=== PATIENT | male | born 1975 | race Two or more races ===

== ENCOUNTER 2021-12-27 11:31 | Emergency (ER) | payer OTHER ==
[~2021-12-27] VITALS: Ht 172.7 cm; Wt 73.0 kg
[2021-12-27] MEDS ORDERED: HYDROCODONE/ACETAMINOPHEN 5/325MG TABLET PO ONE (12:00)
[2021-12-27] MEDS ORDERED: ONDANSETRON 4MG ODT PO ONE (12:00)
[2021-12-27 13:34] VITALS: BP 133/66
[2021-12-27] MEDS ORDERED: IBUP-2029 MT (13:56)
[2021-12-27] MEDS ORDERED: METH-773 MT (13:56)
== END 2021-12-27 14:11 | disposition home or self-care (01) ==
LOC: ER 11:31
DX: M54.50 Low back pain, unspecified (principal); R07.89 Other chest pain; S09.90XA Unspecified injury of head, initial encounter; V99.XXXA Unspecified transport accident, initial encounter; Y93.89 Activity, other specified; Y92.89 Other specified places as the place of occurrence of the external cause; Y99.8 Other external cause status
CPT/HCPCS: 70450; 71250; 72100; 72125; 93005; 99285; Q0162